=== PATIENT | male | born 1945 | race Caucasian/White ===

== ENCOUNTER 2017-08-14 20:22 | Inpatient (IN) | payer OTHER ==
[~2017-08-14] VITALS: Ht 165.1 cm; Wt 99.7 kg
[~2017-08-14 20:22] MED LIST: ACTOS30 MG PO; ADULT LOW DOSE81 M1 PO; ALLERGY RELIEF10 M1 PO; ALTACE1.25 MG PO; ALUMINUM H320 MG/5 M PO; AMLODIPINE BES2.5 MG PO; AMLODIPINE BESYL5 MG PO; ASPIR 8181 M1 PO; ASPIR-LOW81 MG PO; ASPIRIN325 MG; ASPIRIN325 MG PO; ASPIRIN81 M1 PO; ASPIRIN81 M2 PO; ATORVASTATIN CA80 MG PO; Aspirin E.C. PO; Aspirin PO; CARDURA2 M1 PO; CEROVITE ADVAN1 EACH PO; CERTAVITE WITH1 EAC1 PO; CLOPIDOGREL75 MG PO; COZAAR100 MG PO; DEXILANT60 MG PO; DOXAZOSIN MESYLA2 MG PO; ECOTRIN325 MG PO; EXTRA STRENGTH500 M1 PO; Ecotrin PO; FERROUS SULFAT325 MG PO; FLOVENT 11120 INHALA IH; FLOVENT 22120 INHALA IH; FUROSEMIDE20 MG PO; FUROSEMIDE40 MG PO; GABAPENTIN300 MG PO; GERI-LANTA LIQ355 ML PO; GLUCAGON1 MG IM; GLUCOTROL10 MG PO; GLYCOLAX PO; HUMALOG100 UNIT/1 SC; HUMULIN R500 UNITS/ SC; IMDUR30 MG PO; IMDUR60 MG PO; IRON 65 MG; IRON PO; IRON45 MG PO; IRON55 MG PO; ISOSORBIDE DINI30 MG PO; ISOSORBIDE MONO30 MG PO; ISOSORBIDE MONO60 MG PO; JANUMET 50/11 TABLET PO; JANUMET XR 50-1 EAC1 PO; JANUVIA100 MG; Januvia PO; KAPIDEX60 MG PO; LANTUS (UNITS)1 UNIT SQ; LANTUS 10100 UNITS/ SC; LANTUS 3 M100 UNITS1 SC; LASIX40 MG PO; LEVEMIR FL100 UNIT/1 SC; LIPITOR40 MG PO; LIPITOR80 MG PO; LISINOPRIL10 MG PO; LISINOPRIL20 MG PO; LO-DOSE ASPIRIN81 M1 PO; LOPRESSOR100 M1 PO; LORATADINE10 M2 PO; Lipitor PO; METOPROLOL TAR100 MG PO; METOPROLOL TART25 MG PO; METOPROLOL TART75 MG PO; MIRALAX17 GM PO; MIRALAX255 GM PO; MONTELUKAST SOD10 MG PO; MUCINEX600 MG PO; NEURONTIN100 MG PO; NEURONTIN300 MG PO; NITRO-DUR1 EAC4 TD; NITROSTAT0.4 MG SL; NOVOLOG 10100 UNITS/ SC; NOVOLOG PE100 UNITS/ SC; OCUVITE TABLET1 EACH PO; OMEPRAZOLE20 MG PO; PLAVIX75 MG PO; PLETAL100 MG PO; PRECOSE50 M1 PO; PRECOSE50 MG; PRECOSE50 MG PO; PRINIVIL5 MG PO; PROAIR HFA8.5 GM IH; Plavix PO; RELAFEN750 MG PO; SENEXON-S TABL1 EACH PO; SINGULAIR10 MG PO; SODIUM POL15 GM/60 M PO; Singulair PO; Slow Fe PO; TRAMADOL HCL50 MG PO; TYLENOL EXTRA500 MG PO; VITAMIN D2000 INTUN PO; VITAMIN D2000 UNIT PO; Vitamin D PO; ZESTRIL20 MG PO; ZETIA10 MG PO; Zestril,Prinivil PO; Zetia PO
[2017-08-14 20:38] LABS: EOSINOPHIL (%) 1.4 % (0-5); EOSINOPHIL COUNT 0.1 K/uL (0-0.3); HEMATOCRIT 37.3 % (38.0-50.0); IMMATURE GRANULOCYTE (%) 0.5 % (0.0-0.7); INSTRUMENT ABS NEUTROPHIL CT 6.7 K/uL; LYMPHOCYTE COUNT 1.4 K/uL (1.0-2.8); MCH 29.9 PG (29.0-34.0); MCV 90.5 FL (86-99); MEAN PLAT.VOLUME 10.8 uM^3 (9.0-12.4); MONOCYTE (%) 5.9 % (3-12); MONOCYTE COUNT 0.5 K/uL (0-0.8); NEUTROPHIL (%) 75.7 % (45-76); NEUTROPHIL COUNT 6.7 K/uL (1.8-6.4); PLATELET COUNT 120 K/uL (156-360); RBC DIS.WIDTH-CV 12.9 % (11.8-14.6); RBC DIS.WIDTH-SD 42.2 % (39-53); RED BLOOD COUNT 4.12 M/uL (4.00-5.50); WHITE BLOOD COUNT 8.9 K/uL (4.1-10.2)
[2017-08-14 20:47] LABS: CHLORIDE 106 mEq/L (99-109); POTASSIUM 5.6 mEq/L (3.7-5.4); SODIUM 135 mEq/L (136-147)
[2017-08-14 20:48] LABS: MAGNESIUM 2.2 mg/dL (1.3-2.7)
[2017-08-14 20:50] LABS: ANION GAP 13 MEQ/L (2-14)
[2017-08-14 20:53] LABS: GFR ESTIMATE (CALCULATED) 25 mL/min/
[2017-08-14 20:54] LABS: UREA NITROGEN (BUN) 59 mg/dL (9-23)
[2017-08-14 21:00] LABS: TROP-I INTERPRETATION NEGATIVE; TROPONIN-I 0.02 ng/mL (0.0-0.30)
[2017-08-14 21:05] LABS: GLUCOSE 501 mg/dL (70-99)
[2017-08-14 21:22] LABS: CARBON DIOXIDE (BICARBONATE) 21.3 MEQ/L (20-31)
[2017-08-14 21:49] LABS: INTER. NORMALIZED RATIO 1.1; PROTHROMBIN TIME 12.4 SEC (10.2-12.9)
[2017-08-14 21:52] LABS: PTT 29.5 SEC (25-37)
[2017-08-14] MEDS ORDERED: HUMALOG100 UNIT/1 SC ×3 (22:02→22:16)
[2017-08-14] MEDS ORDERED: MONTELUKAST SOD10 MG PO (22:02)
[2017-08-14] MEDS ORDERED: PLAVIX75 MG PO (22:03)
[2017-08-14] MEDS ORDERED: LIPITOR80 MG PO (22:03)
[2017-08-14] MEDS ORDERED: CARDURA2 M1 PO (22:03)
[2017-08-14] MEDS ORDERED: LOPRESSOR100 M1 PO (22:04)
[2017-08-14] MEDS ORDERED: IMDUR60 MG PO (22:04)
[2017-08-14] MEDS ORDERED: FERREX 150150 MG PO (22:05)
[2017-08-14] MEDS ORDERED: LASIX20 MG PO (22:05)
[2017-08-14] MEDS ORDERED: ZANTAC150 MG PO (22:06)
[2017-08-14] MEDS ORDERED: TOUJEO SOL300 UNIT/1 SC (22:11)
[2017-08-14] MEDS ORDERED: LOW DOSE ASPIRI81 M1 PO (22:12)
[2017-08-14] MEDS ORDERED: ARICEPT23 MG PO (22:12)
[2017-08-14] MEDS ORDERED: IPRATROPIUM BRO15 ML BOTH NARES (22:17)
[2017-08-14] MEDS ORDERED: TYLENOL EXTRA500 MG PO (22:19)
[2017-08-14] MEDS ORDERED: ALUMINUM H320 MG/5 M PO (22:20)
[2017-08-14] MEDS ORDERED: MIRALAX17 GM PO (22:20)
[2017-08-14] MEDS ORDERED: ATIVAN0.5 MG PO (22:21)
[2017-08-14] MEDS ORDERED: CLARITIN,ALAVAR10 MG PO (22:21)
[2017-08-14] MEDS ORDERED: SENNA LAX8.6 MG PO (22:22)
[2017-08-14] MEDS ORDERED: GERI-LANTA LIQ355 ML PO (22:23)
[2017-08-14] MEDS ORDERED: NITROSTAT0.4 MG SL (22:23)
[2017-08-15 00:42] LABS: POINT-OF-CARE METER ID UU13113702
[2017-08-15 04:04] LABS: CHLORIDE 107 mEq/L (99-109); POTASSIUM 5.8 mEq/L (3.7-5.4); SODIUM 137 mEq/L (136-147)
[2017-08-15 04:06] LABS: GLUCOSE 351 mg/dL (70-99)
[2017-08-15 04:07] LABS: ANION GAP 11 MEQ/L (2-14)
[2017-08-15 04:08] LABS: TOTAL BILIRUBIN 0.3 mg/dL (0.0-1.0)
[2017-08-15 04:09] LABS: ALKALINE PHOSPHATASE 69 IU/L (3-129)
[2017-08-15 04:10] LABS: GFR ESTIMATE (CALCULATED) 27 mL/min/
[2017-08-15 04:11] LABS: UREA NITROGEN (BUN) 61 mg/dL (9-23)
[2017-08-15 04:18] LABS: TROP-I INTERPRETATION POSITIVE
[2017-08-15 04:25] LABS: TROPONIN-I 2.27 ng/mL (0.0-0.30)
[2017-08-15 04:30] VITALS: BP 147/72
[2017-08-15 05:50] LABS: HEMATOCRIT 33.8 % (38.0-50.0); MCH 30.5 PG (29.0-34.0); MCHC 33.4 G/DL (30.0-36.0); MCV 91.1 FL (86-99); MEAN PLAT.VOLUME 11.7 uM^3 (9.0-12.4); PLATELET COUNT 108 K/uL (156-360); RBC DIS.WIDTH-CV 12.9 % (11.8-14.6); RBC DIS.WIDTH-SD 42.4 % (39-53); RED BLOOD COUNT 3.71 M/uL (4.00-5.50); WHITE BLOOD COUNT 7.5 K/uL (4.1-10.2)
[2017-08-15 06:28] LABS: METH RESISTANT S AUREUS PCR NEGATIVE (NEGATIVE)
[2017-08-15 06:29] LABS: PROBE CHECK PASS; SPECIMEN PROCESSING CONTROL PASS
[2017-08-15 07:30] VITALS: BP 156/70
[2017-08-15 07:58] LABS: POINT-OF-CARE METER ID UU13113698; POINT-OF-CARE USER ID ENVKC36
[2017-08-15 09:07] LABS: TROP-I INTERPRETATION POSITIVE
[2017-08-15 09:12] LABS: TROPONIN-I 2.99 ng/mL (0.0-0.30)
[2017-08-15 11:21] LABS: POINT-OF-CARE METER ID UU13113698; POINT-OF-CARE USER ID ENVKC36
[2017-08-15 12:20] VITALS: BP 128/46
[2017-08-15 15:46] VITALS: BP 129/41
[2017-08-15 16:18] LABS: POINT-OF-CARE METER ID UU13113698
[2017-08-15 19:15] VITALS: BP 126/50
[2017-08-15 21:22] LABS: POINT-OF-CARE METER ID UU13113781
[2017-08-15 23:00] VITALS: BP 141/53
[2017-08-16 02:26] LABS: HEMATOCRIT 33.4 % (38.0-50.0); MCH 29.6 PG (29.0-34.0); MCHC 32.9 G/DL (30.0-36.0); MEAN PLAT.VOLUME 10.6 uM^3 (9.0-12.4); PLATELET COUNT 106 K/uL (156-360); RBC DIS.WIDTH-CV 12.9 % (11.8-14.6); RED BLOOD COUNT 3.71 M/uL (4.00-5.50); WHITE BLOOD COUNT 8.1 K/uL (4.1-10.2)
[2017-08-16 02:37] LABS: CHLORIDE 109 mEq/L (99-109); SODIUM 140 mEq/L (136-147)
[2017-08-16 02:40] LABS: GLUCOSE 85 mg/dL (70-99); POTASSIUM 4.6 mEq/L (3.7-5.4)
[2017-08-16 02:41] LABS: ANION GAP 10 MEQ/L (2-14)
[2017-08-16 02:42] LABS: TOTAL BILIRUBIN 0.4 mg/dL (0.0-1.0)
[2017-08-16 02:43] LABS: ALKALINE PHOSPHATASE 58 IU/L (3-129); GFR ESTIMATE (CALCULATED) 35 mL/min/
[2017-08-16 02:44] LABS: UREA NITROGEN (BUN) 49 mg/dL (9-23)
[2017-08-16 04:00] VITALS: BP 153/56
[2017-08-16 07:46] VITALS: BP 161/63
[2017-08-16 07:47] LABS: POINT-OF-CARE METER ID UU13113781; POINT-OF-CARE USER ID ENVKC36
[2017-08-16 11:38] VITALS: BP 148/41
[2017-08-16 11:41] LABS: POINT-OF-CARE METER ID UU14174216; POINT-OF-CARE USER ID ENVKC36
[2017-08-16 16:36] VITALS: BP 142/59
[2017-08-16 16:42] LABS: POINT-OF-CARE METER ID UU13113781; POINT-OF-CARE USER ID ENVKC36
[2017-08-16 19:00] VITALS: BP 145/65
[2017-08-16 21:09] LABS: POINT-OF-CARE METER ID UU13113781
[2017-08-16 23:12] VITALS: BP 159/69
[2017-08-17 03:47] VITALS: BP 157/68
[2017-08-17 03:50] LABS: POINT-OF-CARE METER ID UU13113698
[2017-08-17 03:54] LABS: POINT-OF-CARE METER ID UU13113698
[2017-08-17 07:27] LABS: HEMATOCRIT 34.5 % (38.0-50.0); MCH 30.1 PG (29.0-34.0); MEAN PLAT.VOLUME 11.6 uM^3 (9.0-12.4); PLATELET COUNT 115 K/uL (156-360); RBC DIS.WIDTH-CV 12.9 % (11.8-14.6); RBC DIS.WIDTH-SD 42.5 % (39-53); RED BLOOD COUNT 3.79 M/uL (4.00-5.50); WHITE BLOOD COUNT 7.8 K/uL (4.1-10.2)
[2017-08-17 07:30] VITALS: BP 170/72
[2017-08-17 07:49] LABS: ALKALINE PHOSPHATASE 66 IU/L (3-129); ANION GAP 8 MEQ/L (2-14); CHLORIDE 107 MEQ/L (99-109); GFR ESTIMATE (CALCULATED) 40 mL/min/; POTASSIUM 4.8 MEQ/L (3.7-5.4); SAMPLE HEMOLYSIS CHECK 0; SAMPLE ICTERIC CHECK 0; SAMPLE LIPEMIA CHECK 0; SODIUM 139 MEQ/L (136-147); TOTAL BILIRUBIN 0.5 MG/DL (0.0-1.0); UREA NITROGEN (BUN) 38 mg/dL (9-23)
[2017-08-17 07:52] LABS: GLUCOSE 199 mg/dL (70-99)
[2017-08-17 11:54] VITALS: BP 153/67
[2017-08-17 12:28] LABS: POINT-OF-CARE USER ID NUTSLF44
== END 2017-08-17 15:41 | disposition home or self-care (01) | DRG 281 ==
LOC: EME → EDBD 20:22 → EME 20:22 → EDOF 08-15 02:55 → 4EAST 08-15 02:55 → ENRESERV 08-15 02:57 → 4EAST 08-15 04:21
PROVIDERS: Emergency Medicine; Internal Medicine
DX: I21.4 Non-ST elevation (NSTEMI) myocardial infarction (principal); N17.9 Acute kidney failure, unspecified; I13.0 Hypertensive heart and chronic kidney disease with heart failure and stage 1 through stage 4 chronic kidney disease, or unspecified chronic kidney disease; I50.9 Heart failure, unspecified; E11.22 Type 2 diabetes mellitus with diabetic chronic kidney disease; N18.3 Chronic kidney disease, stage 3 (moderate); E11.42 Type 2 diabetes mellitus with diabetic polyneuropathy; E11.65 Type 2 diabetes mellitus with hyperglycemia; E66.9 Obesity, unspecified; E78.5 Hyperlipidemia, unspecified; E78.00 Pure hypercholesterolemia, unspecified; E87.5 Hyperkalemia; F03.90 Unspecified dementia, unspecified severity, without behavioral disturbance, psychotic disturbance, mood disturbance, and anxiety; G47.33 Obstructive sleep apnea (adult) (pediatric); I25.10 Atherosclerotic heart disease of native coronary artery without angina pectoris; I25.810 Atherosclerosis of coronary artery bypass graft(s) without angina pectoris; I25.2 Old myocardial infarction; Z23 Encounter for immunization; Z68.37 Body mass index [BMI] 37.0-37.9, adult; Z79.4 Long term (current) use of insulin; Z86.73 Personal history of transient ischemic attack (TIA), and cerebral infarction without residual deficits; Z87.891 Personal history of nicotine dependence; Z95.1 Presence of aortocoronary bypass graft; Z91.14 Patient's other noncompliance with medication regimen; Z79.02 Long term (current) use of antithrombotics/antiplatelets
CPT/HCPCS: 71010; 80048; 80053; 82803; 82948; 83735; 84484; 85025; 85027; 85610; 85730; 87641; 90686; 93005; 94002; 94640; 94799; 99281; 99285; J0610; J1200; J1815; J2060; J2270; J2405; J7040; J7050; J7120

== ENCOUNTER 2018-02-15 18:38 | Observation (INO) | payer OTHER ==
[~2018-02-15] VITALS: Ht 165.1 cm; Wt 102.0 kg
[~2018-02-15 18:38] MED LIST changes: +ARICEPT23 MG PO; +ATIVAN0.5 MG PO; +CLARITIN,ALAVAR10 MG PO; +FERREX 150150 MG PO; +IPRATROPIUM BRO15 ML BOTH NARES; +LASIX20 MG PO; +LOW DOSE ASPIRI81 M1 PO; +SENNA LAX8.6 MG PO; +TOUJEO SOL300 UNIT/1 SC; +ZANTAC150 MG PO
[2018-02-15 19:44] LABS: HEMATOCRIT 34.2 % (38.0-50.0); HEMOGLOBIN 11.6 G/DL (12.5-16.6); MCH 30.2 PG (29.0-34.0); MCHC 33.9 G/DL (30.0-36.0); MCV 89.1 FL (86-99); PLATELET COUNT 131 K/uL (156-360); RBC DIS.WIDTH-CV 12.9 % (11.8-14.6); RED BLOOD COUNT 3.84 M/uL (4.00-5.50); WHITE BLOOD COUNT 7.2 K/uL (4.1-10.2)
[2018-02-15 19:58] LABS: CHLORIDE 101 mEq/L (99-109); POTASSIUM 5.3 mEq/L (3.7-5.4); SODIUM 133 mEq/L (136-147)
[2018-02-15 20:04] LABS: CREATININE 2.3 mg/dL (0.6-1.3); GFR ESTIMATE (CALCULATED) 30 mL/min/ (58.99-99999)
[2018-02-15 20:05] LABS: TROP-I INTERPRETATION NEGATIVE; TROPONIN-I 0.01 ng/mL (0.0-0.30); UREA NITROGEN (BUN) 50 mg/dL (9-23)
[2018-02-15 20:16] LABS: GLUCOSE 442 mg/dL (70-99)
[2018-02-15] MEDS ORDERED: TRESIBA FL200 UNIT/1 SC (20:48)
[2018-02-15] MEDS ORDERED: TUMS500 MG PO (21:02)
[2018-02-15] MEDS ORDERED: RANITIDINE HCL150 MG PO (21:05)
[2018-02-15] MEDS ORDERED: FUROSEMIDE20 MG PO (21:05)
[2018-02-15] MEDS ORDERED: ATORVASTATIN CA80 MG PO (21:05)
[2018-02-15] MEDS ORDERED: METOPROLOL TAR100 MG PO (21:05)
[2018-02-15] MEDS ORDERED: DONEPEZIL HCL23 MG PO (21:05)
[2018-02-15] MEDS ORDERED: CLOPIDOGREL75 MG PO (21:05)
[2018-02-15 22:58] VITALS: BP 134/64
[2018-02-16 01:55] LABS: TROP-I INTERPRETATION NEGATIVE; TROPONIN-I 0.03 ng/mL (0.0-0.30)
[2018-02-16 03:52] VITALS: BP 172/75
[2018-02-16 08:04] VITALS: BP 169/69
[2018-02-16 08:45] LABS: HEMATOCRIT 37.1 % (38.0-50.0); HEMOGLOBIN 12.5 G/DL (12.5-16.6); MCH 30.2 PG (29.0-34.0); MCHC 33.7 G/DL (30.0-36.0); MCV 89.6 FL (86-99); PLATELET COUNT 139 K/uL (156-360); RBC DIS.WIDTH-SD 42.4 % (39-53); RED BLOOD COUNT 4.14 M/uL (4.00-5.50); WHITE BLOOD COUNT 8.5 K/uL (4.1-10.2)
[2018-02-16 08:58] LABS: CHLORIDE 106 MEQ/L (99-109); GFR ESTIMATE (CALCULATED) 35 mL/min/ (58.99-99999); POTASSIUM 5.2 MEQ/L (3.7-5.4); SODIUM 138 MEQ/L (136-147); UREA NITROGEN (BUN) 39 mg/dL (9-23)
[2018-02-16 09:22] LABS: TROP-I INTERPRETATION NEGATIVE; TROPONIN-I 0.02 ng/mL (0.0-0.30)
[2018-02-16 09:24] LABS: GLUCOSE 148 mg/dL (70-99)
[2018-02-16 11:56] VITALS: BP 172/57
[2018-02-16] MEDS ORDERED: IMDUR120 MG PO (12:07)
[2018-02-16 12:58] VITALS: BP 135/65
== END 2018-02-16 13:59 | disposition home or self-care (01) ==
LOC: EME 18:38 → 5WEST 20:35 → EDOF 20:35 → ENRESERV 20:36 → 5WEST 22:42
PROVIDERS: Emergency Medicine Emergency Medical Services; Hospitalist; Physician Assistant
DX: R07.89 Other chest pain (principal); E11.22 Type 2 diabetes mellitus with diabetic chronic kidney disease; I12.9 Hypertensive chronic kidney disease with stage 1 through stage 4 chronic kidney disease, or unspecified chronic kidney disease; N18.9 Chronic kidney disease, unspecified; E11.65 Type 2 diabetes mellitus with hyperglycemia; E11.42 Type 2 diabetes mellitus with diabetic polyneuropathy; I25.119 Atherosclerotic heart disease of native coronary artery with unspecified angina pectoris; D64.9 Anemia, unspecified; F03.90 Unspecified dementia, unspecified severity, without behavioral disturbance, psychotic disturbance, mood disturbance, and anxiety; Z95.1 Presence of aortocoronary bypass graft; E78.5 Hyperlipidemia, unspecified; Z86.73 Personal history of transient ischemic attack (TIA), and cerebral infarction without residual deficits; Z79.4 Long term (current) use of insulin; Z87.891 Personal history of nicotine dependence; I25.2 Old myocardial infarction; Z79.82 Long term (current) use of aspirin
CPT/HCPCS: 71045; 80048; 82948; 84484; 85027; 93005; 99281; 99285; G0378; J1644; J1815

== ENCOUNTER 2018-06-22 20:34 | Inpatient (IN) | payer OTHER ==
[~2018-06-22] VITALS: Ht 160 cm; Wt 99.4 kg
[~2018-06-22 20:34] MED LIST changes: +DONEPEZIL HCL23 MG PO; +IMDUR120 MG PO; +RANITIDINE HCL150 MG PO; +TRESIBA FL200 UNIT/1 SC; +TUMS500 MG PO
[2018-06-22 21:09] LABS: BASOPHIL (%) 0.4 % (0-1); BASOPHIL COUNT 0.1 K/uL (0-0.1); EOSINOPHIL (%) 1.3 % (0-5); EOSINOPHIL COUNT 0.2 K/uL (0-0.3); HEMATOCRIT 43.8 % (38.0-50.0); IMMATURE GRANULOCYTE (%) 0.7 % (0.0-0.7); LYMPHOCYTE (%) 16.8 % (15-42); LYMPHOCYTE COUNT 2.6 K/uL (1.0-2.8); MCH 29.5 PG (29.0-34.0); MCHC 33.6 G/DL (30.0-36.0); MCV 87.8 FL (86-99); MONOCYTE (%) 6.7 % (3-12); NEUTROPHIL (%) 74.1 % (45-76); NEUTROPHIL COUNT 11.4 K/uL (1.8-6.4); RBC DIS.WIDTH-CV 13.5 % (11.8-14.6); RED BLOOD COUNT 4.99 M/uL (4.00-5.50); WHITE BLOOD COUNT 15.3 K/uL (4.1-10.2)
[2018-06-22 21:12] LABS: HEMOGLOBIN 14.7 G/DL (12.5-16.6); PLATELET COUNT 188 K/uL (156-360)
[2018-06-22 21:17] LABS: INTER. NORMALIZED RATIO 1.1
[2018-06-22 21:18] LABS: AMYLASE 78 IU/L (1-118); CHLORIDE 103 mEq/L (99-109); POTASSIUM 5.5 mEq/L (3.7-5.4); SODIUM 133 mEq/L (136-147)
[2018-06-22 21:19] LABS: GLUCOSE 374 mg/dL (70-99); PTT 29.1 SEC (25-37)
[2018-06-22 21:22] LABS: SERUM ETHYL ALCOHOL < 10 mg/dL
[2018-06-22 21:23] LABS: CREATININE 2.7 mg/dL (0.6-1.3); GFR ESTIMATE (CALCULATED) 25 mL/min/ (58.99-99999)
[2018-06-22 21:24] LABS: UREA NITROGEN (BUN) 64 mg/dL (9-23)
[2018-06-22 21:26] LABS: LIPASE 33 U/L (1.0-51.0)
[2018-06-22 21:30] LABS: TROP-I INTERPRETATION NEGATIVE; TROPONIN-I 0.02 ng/mL (0.0-0.30)
[2018-06-23] VITALS (27 sets, daily range): BP systolic 78–158; BP diastolic 43–94
[2018-06-23 01:13] LABS: ALBUMIN 3.6 g/dL (3.2-4.8); CHLORIDE 101 mEq/L (99-109); POTASSIUM 5.9 mEq/L (3.7-5.4); SODIUM 130 mEq/L (136-147)
[2018-06-23 01:14] LABS: MAGNESIUM 2.1 mg/dL (1.3-2.7)
[2018-06-23 01:16] LABS: TOTAL PROTEIN 6.7 g/dL (6.4-8.3)
[2018-06-23 01:17] LABS: TOTAL BILIRUBIN 0.9 mg/dL (0.0-1.0)
[2018-06-23 01:19] LABS: ALKALINE PHOSPHATASE 87 IU/L (3-129); CREATININE 2.8 mg/dL (0.6-1.3); GFR ESTIMATE (CALCULATED) 24 mL/min/ (58.99-99999); PHOSPHORUS 3.6 mg/dL (2.5-4.9)
[2018-06-23 01:20] LABS: UREA NITROGEN (BUN) 66 mg/dL (9-23)
[2018-06-23 01:21] LABS: AST (GOT) 30 IU/L (2-34)
[2018-06-23 01:22] LABS: ALT (GPT) 28 IU/L (3-49)
[2018-06-23 01:29] LABS: COMMENTS - BLOOD GASES C+; DEVICE VENT; FI02 80 %; MECHANICAL RATE 18 resp/min; MODE AC; PEEP 10 CM/H20; SITE ALINE; TOTAL RESP RATE 450 resp/min
[2018-06-23 01:30] LABS: BASE EXCESS -5.3 mEq/L (-3 to +3); BICARBONATE 21.2 mEq/L (22-26); CARBOXY HGB 1.6 % (0-5); METHEMOGLOBIN 1 % (0-1.5); O2 SATURATION (CALCULATED) 95.2 % (95-99); PCO2 44 mm Hg (35-45); PO2 67 mm Hg (80-100); pH 7.29 (7.35-7.45)
[2018-06-23 01:40] LABS: GLUCOSE 427 mg/dL (70-99)
[2018-06-23 03:58] LABS: BASOPHIL (%) 0.2 % (0-1); EOSINOPHIL (%) 0.2 % (0-5); HEMATOCRIT 36.7 % (38.0-50.0); IMMATURE GRANULOCYTE (%) 0.8 % (0.0-0.7); LYMPHOCYTE (%) 7.9 % (15-42); MCH 29.5 PG (29.0-34.0); MCHC 33.8 G/DL (30.0-36.0); MCV 87.2 FL (86-99); MONOCYTE COUNT 0.8 K/uL (0-0.8); NEUTROPHIL (%) 84.9 % (45-76); NEUTROPHIL COUNT 10.6 K/uL (1.8-6.4); PLATELET COUNT 149 K/uL (156-360); RBC DIS.WIDTH-CV 13.4 % (11.8-14.6); RBC DIS.WIDTH-SD 42.4 % (39-53); RED BLOOD COUNT 4.21 M/uL (4.00-5.50); WHITE BLOOD COUNT 12.5 K/uL (4.1-10.2)
[2018-06-23 03:59] LABS: HEMOGLOBIN 12.4 G/DL (12.5-16.6)
[2018-06-23 06:21] LABS: BASOPHIL (%) 0.4 % (0-1); BASOPHIL COUNT 0.1 K/uL (0-0.1); EOSINOPHIL (%) 0.3 % (0-5); HEMOGLOBIN 11.9 G/DL (12.5-16.6); IMMATURE GRANULOCYTE (%) 0.6 % (0.0-0.7); LYMPHOCYTE (%) 18.1 % (15-42); LYMPHOCYTE COUNT 2.1 K/uL (1.0-2.8); MCH 29.1 PG (29.0-34.0); MCHC 32.2 G/DL (30.0-36.0); MCV 90.5 FL (86-99); MONOCYTE (%) 9.7 % (3-12); MONOCYTE COUNT 1.1 K/uL (0-0.8); NEUTROPHIL (%) 70.9 % (45-76); NEUTROPHIL COUNT 8.1 K/uL (1.8-6.4); PLATELET COUNT 135 K/uL (156-360); RBC DIS.WIDTH-CV 13.6 % (11.8-14.6); RBC DIS.WIDTH-SD 45.1 % (39-53); RED BLOOD COUNT 4.09 M/uL (4.00-5.50); WHITE BLOOD COUNT 11.5 K/uL (4.1-10.2)
[2018-06-23 06:44] LABS: TROP-I INTERPRETATION POSITIVE; TROPONIN-I 6.92 ng/mL (0.0-0.30)
[2018-06-23 06:48] LABS: CHLORIDE 102 MEQ/L (99-109); CREATINE KINASE 313 IU/L (1-294); CREATININE 2.5 MG/DL (0.6-1.3); GFR ESTIMATE (CALCULATED) 27 mL/min/ (58.99-99999); GLUCOSE 301 mg/dL (70-99); POTASSIUM 5.1 MEQ/L (3.7-5.4); SODIUM 133 MEQ/L (136-147); UREA NITROGEN (BUN) 66 mg/dL (9-23)
[2018-06-23 07:53] LABS: TRIGLYCERIDES 127 MG/DL (Normal: <150)
[2018-06-23 09:30] LABS: HEMOGLOBIN A1c (GLYCOHEMOGLOB) 7.5 % (Below 5.7)
[2018-06-23 10:24] LABS: CHLORIDE 104 mEq/L (99-109); POTASSIUM 4.4 mEq/L (3.7-5.4); SODIUM 136 mEq/L (136-147)
[2018-06-23 10:26] LABS: GLUCOSE 145 mg/dL (70-99)
[2018-06-23 10:30] LABS: CREATININE 2.9 mg/dL (0.6-1.3); GFR ESTIMATE (CALCULATED) 23 mL/min/ (58.99-99999); PHOSPHORUS 4.9 mg/dL (2.5-4.9)
[2018-06-23 10:31] LABS: UREA NITROGEN (BUN) 68 mg/dL (9-23)
[2018-06-23 10:33] LABS: CREATINE KINASE 327 IU/L (1-294)
[2018-06-23 10:39] LABS: TROP-I INTERPRETATION POSITIVE
[2018-06-23 10:41] LABS: TROPONIN-I 10.19 ng/mL (0.0-0.30)
[2018-06-23 14:43] LABS: CHLORIDE 104 mEq/L (99-109); POTASSIUM 4.4 mEq/L (3.7-5.4); SODIUM 137 mEq/L (136-147)
[2018-06-23 14:45] LABS: GLUCOSE 108 mg/dL (70-99)
[2018-06-23 14:49] LABS: GFR ESTIMATE (CALCULATED) 22 mL/min/ (58.99-99999); PHOSPHORUS 5.3 mg/dL (2.5-4.9)
[2018-06-23 14:50] LABS: UREA NITROGEN (BUN) 67 mg/dL (9-23)
[2018-06-23 18:26] LABS: CHLORIDE 101 mEq/L (99-109); POTASSIUM 5.2 mEq/L (3.7-5.4); SODIUM 136 mEq/L (136-147)
[2018-06-23 18:29] LABS: GLUCOSE 163 mg/dL (70-99)
[2018-06-23 18:31] LABS: CREATININE 3.4 mg/dL (0.6-1.3); GFR ESTIMATE (CALCULATED) 19 mL/min/ (58.99-99999); PHOSPHORUS 5.7 mg/dL (2.5-4.9)
[2018-06-23 18:32] LABS: UREA NITROGEN (BUN) 68 mg/dL (9-23)
[2018-06-23 18:42] LABS: TROP-I INTERPRETATION POSITIVE; TROPONIN-I 5.78 ng/mL (0.0-0.30)
[2018-06-24] VITALS (26 sets, daily range): BP systolic 64–136; BP diastolic 35–77
[2018-06-24 00:50] LABS: CHLORIDE 101 mEq/L (99-109); SODIUM 132 mEq/L (136-147)
[2018-06-24 00:55] LABS: PHOSPHORUS 6.3 mg/dL (2.5-4.9)
[2018-06-24 00:56] LABS: UREA NITROGEN (BUN) 72 mg/dL (9-23)
[2018-06-24 01:01] LABS: CREATINE KINASE 846 IU/L (1-294); CREATININE 4.2 mg/dL (0.6-1.3); GFR ESTIMATE (CALCULATED) 15 mL/min/ (58.99-99999); GLUCOSE 250 mg/dL (70-99); POTASSIUM 6.6 mEq/L (3.7-5.4)
[2018-06-24 06:03] LABS: BASOPHIL (%) 0.2 % (0-1); EOSINOPHIL (%) 0.1 % (0-5); HEMATOCRIT 35.5 % (38.0-50.0); HEMOGLOBIN 11.3 G/DL (12.5-16.6); IMMATURE GRANULOCYTE (%) 0.4 % (0.0-0.7); LYMPHOCYTE (%) 9.7 % (15-42); LYMPHOCYTE COUNT 1.1 K/uL (1.0-2.8); MCH 29.3 PG (29.0-34.0); MCHC 31.8 G/DL (30.0-36.0); MONOCYTE (%) 10.2 % (3-12); MONOCYTE COUNT 1.2 K/uL (0-0.8); NEUTROPHIL (%) 79.4 % (45-76); NEUTROPHIL COUNT 9.3 K/uL (1.8-6.4); PLATELET COUNT 137 K/uL (156-360); RBC DIS.WIDTH-CV 14.5 % (11.8-14.6); RBC DIS.WIDTH-SD 48.4 % (39-53); RED BLOOD COUNT 3.86 M/uL (4.00-5.50); WHITE BLOOD COUNT 11.7 K/uL (4.1-10.2)
[2018-06-24 06:50] LABS: CHLORIDE 100 MEQ/L (99-109); CREATININE 4.4 MG/DL (0.6-1.3); GFR ESTIMATE (CALCULATED) 14 mL/min/ (58.99-99999); GLUCOSE 222 mg/dL (70-99); MAGNESIUM 2.1 mg/dl (1.3-2.7); SODIUM 136 MEQ/L (136-147); UREA NITROGEN (BUN) 72 mg/dL (9-23)
[2018-06-24 06:54] LABS: POTASSIUM 5.2 MEQ/L (3.7-5.4)
[2018-06-24 06:56] LABS: CREATINE KINASE 3159 IU/L (1-294)
[2018-06-24 14:31] LABS: HEMATOCRIT 36.5 % (38.0-50.0); HEMOGLOBIN 11.5 G/DL (12.5-16.6); MCH 29.3 PG (29.0-34.0); MCHC 31.5 G/DL (30.0-36.0); MCV 92.9 FL (86-99); PLATELET COUNT 170 K/uL (156-360); RBC DIS.WIDTH-CV 14.5 % (11.8-14.6); RBC DIS.WIDTH-SD 49.3 % (39-53); RED BLOOD COUNT 3.93 M/uL (4.00-5.50); WHITE BLOOD COUNT 20.8 K/uL (4.1-10.2)
[2018-06-24 14:32] LABS: INTER. NORMALIZED RATIO 1.3
[2018-06-24 14:35] LABS: PTT 36.5 SEC (25-37)
[2018-06-24 14:58] LABS: ALBUMIN 3.4 G/DL (3.2-4.8); CHLORIDE 101 MEQ/L (99-109); CREATININE 4.7 MG/DL (0.6-1.3); GFR ESTIMATE (CALCULATED) 13 mL/min/ (58.99-99999); MAGNESIUM 2.1 mg/dl (1.3-2.7); PHOSPHORUS 6.6 mg/dL (2.5-4.9); SODIUM 137 MEQ/L (136-147); UREA NITROGEN (BUN) 74 mg/dL (9-23)
[2018-06-24 15:01] LABS: GLUCOSE 109 mg/dL (70-99)
[2018-06-24 15:42] LABS: INTER. NORMALIZED RATIO 2.4
[2018-06-24 16:05] LABS: PTT ND SEC (25-37)
[2018-06-24 16:49] LABS: ALBUMIN 3.6 g/dL (3.2-4.8)
[2018-06-24 16:50] LABS: CHLORIDE 104 mEq/L (99-109); POTASSIUM 4.4 mEq/L (3.7-5.4); SODIUM 136 mEq/L (136-147)
[2018-06-24 16:52] LABS: GLUCOSE 82 mg/dL (70-99)
[2018-06-24 16:55] LABS: PHOSPHORUS 4.9 mg/dL (2.5-4.9)
[2018-06-24 16:56] LABS: GFR ESTIMATE (CALCULATED) 17 mL/min/ (58.99-99999)
[2018-06-24 16:57] LABS: UREA NITROGEN (BUN) 58 mg/dL (9-23)
[2018-06-24 16:58] LABS: CREATININE 3.7 mg/dL (0.6-1.3)
[2018-06-25] VITALS (23 sets, daily range): BP systolic 77–104; BP diastolic 46–66
[2018-06-25 02:06] LABS: HEMATOCRIT 37.6 % (38.0-50.0); HEMOGLOBIN 12.2 G/DL (12.5-16.6); MCH 29.6 PG (29.0-34.0); MCHC 32.4 G/DL (30.0-36.0); MCV 91.3 FL (86-99); PLATELET COUNT 143 K/uL (156-360); RBC DIS.WIDTH-CV 14.5 % (11.8-14.6); RBC DIS.WIDTH-SD 48.2 % (39-53); RED BLOOD COUNT 4.12 M/uL (4.00-5.50); WHITE BLOOD COUNT 25.3 K/uL (4.1-10.2)
[2018-06-25 02:30] LABS: ALBUMIN 3.9 g/dL (3.2-4.8); CHLORIDE 102 mEq/L (99-109); POTASSIUM 5.1 mEq/L (3.7-5.4); SODIUM 139 mEq/L (136-147)
[2018-06-25 02:31] LABS: MAGNESIUM 2.4 mg/dL (1.3-2.7)
[2018-06-25 02:33] LABS: GLUCOSE 159 mg/dL (70-99)
[2018-06-25 02:36] LABS: GFR ESTIMATE (CALCULATED) 24 mL/min/ (58.99-99999); PHOSPHORUS 4.5 mg/dL (2.5-4.9)
[2018-06-25 02:37] LABS: CREATININE 2.8 mg/dL (0.6-1.3); UREA NITROGEN (BUN) 36 mg/dL (9-23)
[2018-06-25 02:51] LABS: CREATINE KINASE 7985 IU/L (1-294)
[2018-06-25 05:47] LABS: BASOPHIL (%) 0.2 % (0-1); EOSINOPHIL (%) 0 % (0-5); HEMATOCRIT 38.2 % (38.0-50.0); HEMOGLOBIN 12.2 G/DL (12.5-16.6); IMMATURE GRANULOCYTE (%) 0.8 % (0.0-0.7); LYMPHOCYTE (%) 4.7 % (15-42); LYMPHOCYTE COUNT 1.1 K/uL (1.0-2.8); MCH 29.8 PG (29.0-34.0); MCHC 31.9 G/DL (30.0-36.0); MCV 93.2 FL (86-99); MONOCYTE (%) 13.3 % (3-12); MONOCYTE COUNT 3.2 K/uL (0-0.8); NEUTROPHIL COUNT 19.3 K/uL (1.8-6.4); PLATELET COUNT 149 K/uL (156-360); RBC DIS.WIDTH-CV 14.6 % (11.8-14.6); RBC DIS.WIDTH-SD 49.4 % (39-53); WHITE BLOOD COUNT 23.8 K/uL (4.1-10.2)
[2018-06-25 11:08] LABS: ALBUMIN 3.4 G/DL (3.2-4.8); CHLORIDE 99 MEQ/L (99-109); CREATINE KINASE 5491 IU/L (1-294); CREATININE 1.6 MG/DL (0.6-1.3); GFR ESTIMATE (CALCULATED) 45 mL/min/ (58.99-99999); GLUCOSE 230 mg/dL (70-99); MAGNESIUM 2.3 mg/dl (1.3-2.7); PHOSPHORUS 3.3 mg/dL (2.5-4.9); POTASSIUM 5.5 MEQ/L (3.7-5.4); SODIUM 135 MEQ/L (136-147); UREA NITROGEN (BUN) 20 mg/dL (9-23)
[2018-06-25 19:17] LABS: HEMATOCRIT 37.1 % (38.0-50.0); MCH 29.6 PG (29.0-34.0); MCHC 32.3 G/DL (30.0-36.0); MCV 91.6 FL (86-99); NRBC (%) 0.2 /100 WBC (0-0); PLATELET COUNT 135 K/uL (156-360); RBC DIS.WIDTH-CV 14.7 % (11.8-14.6); RBC DIS.WIDTH-SD 49.1 % (39-53); RED BLOOD COUNT 4.05 M/uL (4.00-5.50); WHITE BLOOD COUNT 22.8 K/uL (4.1-10.2)
[2018-06-25 19:59] LABS: ALBUMIN 3.4 G/DL (3.2-4.8); CHLORIDE 100 MEQ/L (99-109); CREATININE 1.4 MG/DL (0.6-1.3); GFR ESTIMATE (CALCULATED) 53 mL/min/ (58.99-99999); GLUCOSE 166 mg/dL (70-99); MAGNESIUM 2.1 mg/dl (1.3-2.7); PHOSPHORUS 3.4 mg/dL (2.5-4.9); POTASSIUM 4.5 MEQ/L (3.7-5.4); SODIUM 136 MEQ/L (136-147); UREA NITROGEN (BUN) 16 mg/dL (9-23)
[2018-06-25 20:04] LABS: CREATINE KINASE 4062 IU/L (1-294)
[2018-06-26] VITALS (15 sets, daily range): BP systolic 44–93; BP diastolic 32–69
[2018-06-26 08:07] LABS: HEMATOCRIT 39.7 % (38.0-50.0); HEMOGLOBIN 11.9 G/DL (12.5-16.6); MCH 28.8 PG (29.0-34.0); NRBC (%) 0.4 /100 WBC (0-0); PLATELET COUNT 153 K/uL (156-360); RBC DIS.WIDTH-SD 53.1 % (39-53); RED BLOOD COUNT 4.13 M/uL (4.00-5.50); WHITE BLOOD COUNT 22.6 K/uL (4.1-10.2)
[2018-06-26 08:10] LABS: PHOSPHORUS 3.5 mg/dL (2.5-4.9)
[2018-06-26 08:11] LABS: ALBUMIN 3.6 G/DL (3.2-4.8); CHLORIDE 99 MEQ/L (99-109); GFR ESTIMATE (CALCULATED) > 59 mL/min/ (58.99-99999); GLUCOSE 140 mg/dL (70-99); MCV 96.1 FL (86-99); PHOSPHORUS 3.6 mg/dL (2.5-4.9); POTASSIUM 3.7 MEQ/L (3.7-5.4); SODIUM 137 MEQ/L (136-147); UREA NITROGEN (BUN) 12 mg/dL (9-23)
[2018-06-26 08:12] LABS: CREATININE 0.9 MG/DL (0.6-1.3)
[2018-06-26 08:26] LABS: ABS NEUTROPHIL COUNT 19.2; ANISOCYTOSIS 1+; BAND NEUTROPHILS 32.5 % (0-8.0); BURR CELLS 2+; EOSINOPHIL ABS CT 0; LYMPHOCYTES 5.2 % (15.0-45.0); METAMYELOCYTES 0.4 %; MONOCYTES 9.5 % (0-9.0); PLAT.SUFFICIENCY DECREASED; POIKILOCYTOSIS 3+; POLYCHROMASIA 1+; SEG.NEUTROPHILS 52.4 % (46.0-76.0)
[2018-06-26 08:27] LABS: HEMATOCRIT 39.7 % (38.0-50.0); HEMOGLOBIN 11.9 G/DL (12.5-16.6); MCH 28.8 PG (29.0-34.0); MCV 96.1 FL (86-99); NRBC (%) 0.4 /100 WBC (0-0); PLATELET COUNT 153 K/uL (156-360); RBC DIS.WIDTH-SD 53.1 % (39-53); RED BLOOD COUNT 4.13 M/uL (4.00-5.50); WHITE BLOOD COUNT 22.6 K/uL (4.1-10.2)
== END 2018-06-26 09:19 | DRG 246 ==
LOC: EME → EDBD 20:34 → EME 20:34 → ENRESERV 21:31 → EME 21:36 → CATH 21:36 → 2SOUTH 21:37 → 4WEST 21:37 → ENRESERVTM 22:09 → ENRESERVDT 22:09 → ENRESERV 22:09 → 4WEST 06-23 00:04
PROVIDERS: Emergency Medicine; Internal Medicine Cardiovascular Disease; Internal Medicine Critical Care Medicine; Internal Medicine Nephrology
DX: T82.855A Stenosis of coronary artery stent, initial encounter (principal); I21.3 ST elevation (STEMI) myocardial infarction of unspecified site; J96.01 Acute respiratory failure with hypoxia; N17.0 Acute kidney failure with tubular necrosis; I50.41 Acute combined systolic (congestive) and diastolic (congestive) heart failure; I25.110 Atherosclerotic heart disease of native coronary artery with unstable angina pectoris; R57.9 Shock, unspecified; I75.021 Atheroembolism of right lower extremity; M62.82 Rhabdomyolysis; I13.0 Hypertensive heart and chronic kidney disease with heart failure and stage 1 through stage 4 chronic kidney disease, or unspecified chronic kidney disease; N18.4 Chronic kidney disease, stage 4 (severe); E11.22 Type 2 diabetes mellitus with diabetic chronic kidney disease; I25.5 Ischemic cardiomyopathy; E11.65 Type 2 diabetes mellitus with hyperglycemia; E66.9 Obesity, unspecified; E11.51 Type 2 diabetes mellitus with diabetic peripheral angiopathy without gangrene; E78.5 Hyperlipidemia, unspecified; G30.9 Alzheimer's disease, unspecified; F02.80 Dementia in other diseases classified elsewhere, unspecified severity, without behavioral disturbance, psychotic disturbance, mood disturbance, and anxiety; T50.8X5A Adverse effect of diagnostic agents, initial encounter; N14.1 Nephropathy induced by other drugs, medicaments and biological substances; I65.02 Occlusion and stenosis of left vertebral artery; I44.7 Left bundle-branch block, unspecified; I48.0 Paroxysmal atrial fibrillation; I49.01 Ventricular fibrillation; Z87.891 Personal history of nicotine dependence; Z68.39 Body mass index [BMI] 39.0-39.9, adult; Z79.4 Long term (current) use of insulin; Z86.73 Personal history of transient ischemic attack (TIA), and cerebral infarction without residual deficits; Y92.89 Other specified places as the place of occurrence of the external cause; I25.2 Old myocardial infarction; Z95.1 Presence of aortocoronary bypass graft
CPT/HCPCS: 36600; 71045; 80048; 80048 91; 80053; 80069; 81003; 82150; 82550; 82550 91; 82948; 83036; 83605; 83690; 83735; 83880; 84100; 84478; 84484; 85025; 85025 91; 85027; 85347; 85610; 85730; 86850; 86900; 86901; 87040; 87070; 87205; 87641; 92950; 93005; 93306; 94002; 94003; 94640; 94799; 99281; 99285; C1725; C1751; C1769; C1788; C1874; C1887; C1894; G0480; J0153; J0282; J0461; J1265; J1644; J1815; J1940; J2250; J2704; J3010; J3475; J7030; J7050; J7120; S0028